=== PATIENT | female | born 1950 | race Caucasian/White ===

== ENCOUNTER 2019-06-18 15:47 | Emergency (ER) | payer BC, MEDICARE ==
[2019-06-18] MEDS ORDERED: traMADol HCl 50 MG TAB ONE (16:52)
[2019-06-18] MEDS ORDERED: Ketorolac Tromethamine 30 MG/ML VIAL ONE (16:52)
--- NOTE | 2019-06-18 17:03 | RAD ---
XR Foot Lt 3 View STANDARD History: Left foot pain Comparison: None Findings: Bunionectomy changes great toe. No acute displaced fracture or malalignment. Mild midfoot d egenerative change. Type II navicular ossicle. Small dorsal and plantar calcaneal spurs. Impression: No acute osseous abnormality.
== END 2019-06-18 17:30 | disposition home or self-care (01) ==
LOC: ERS 15:47
DX: M10.9 Gout, unspecified (principal)
CPT/HCPCS: 96372; J1885